=== PATIENT | male | born 1960 | race African-American/Black ===

== ENCOUNTER 2016-11-02 12:25 | Inpatient (IN) | payer MEDICAID ==
[2016-11-02] VITALS (20 sets, daily range): BP systolic 107–132; BP diastolic 52–83
[~2016-11-02] VITALS: Ht 190.5 cm; Wt 121.5 kg
[~2016-11-02 12:25] MED LIST: AMLO5TAB2 PO; CHOL20007 PO; CLON0.1T PO; GABA-498 PO; HYDR-2595; HYDR25TA4 PO; LOS50T
[2016-11-02 13:22] LABS: Basophils # (auto) 0 uL; Basophils % (auto) 0.3 % (0.0-2.0); DEFINITIVE VIEW TRANSMISSION; Eosinophils # (auto) 0 uL; Eosinophils % (auto) 0.3 % (0.0-7.0); Hematocrit 21.4 % (41.0-53.0); Lymphocytes # (auto) 1.3 uL; Lymphocytes % (auto) 13.4 % (10.0-50.0); Mean Corpuscular Hemoglobin 28.6 pg (28.0-32.0); Mean Corpuscular Hgb Conc. 31.6 g/dL (32.0-36.0); Mean Corpuscular Volume 90.6 fL (80.0-100.0); Mean Platelet Volume 7.6 fL (7.4-10.4); Monocytes # (auto) 0.9 uL; Monocytes % (auto) 9.1 % (0.0-12.0); Neutrophils # (auto) 7.7 uL; Neutrophils % (auto) 76.9 % (37.0-80.0); Platelet Count (auto) 269 10^3/uL (140-450); White Blood Cell 10.1 10^3/uL (4.4-10.8)
[2016-11-02 13:27] LABS: Hemoglobin 6.8 g/dL (13.5-17.5)
[2016-11-02 13:45] LABS: Albumin 3.1 g/dL (3.4-5.0); BUN/Creatinine Ratio 19.4; Calcium 7.8 mg/dL (8.5-10.1); Potassium 3.5 mmol/L (3.5-5.1)
[2016-11-02 13:47] LABS: Bilirubin, Total 0.2 mg/dL (0.2-1.0); Total Protein 6.2 g/dL (6.4-8.2)
[2016-11-02] MEDS ORDERED: SODIUM CHLORIDE 0.9% 1,000 ML IVB ONE (15:21)
[2016-11-02] MEDS ORDERED: PANTOPRAZOLE SODIUM 40 MG/10 ML VIAL IV ONE (15:30)
[2016-11-02] MEDS ORDERED: ONDANSETRON HCL 4 MG/2 ML VIAL IV ONE (15:30)
[2016-11-02 15:50] LABS: Magnesium 2.2 mg/dL (1.6-2.6)
[2016-11-02 16:11] LABS: INR 1.05 (0.9-1.15); Prothrombin Time 10.8 sec (9.37-12.3)
[2016-11-02 16:58] LABS: Urine Bilirubin Negative (Negative); Urine Blood Negative /uL (Negative); Urine Color Yellow (Yellow); Urine Glucose Normal (Normal); Urine Hyaline Cast FEW /lpf (0 - 2); Urine Ketone Negative (Negative); Urine Nitrite Negative (Negative); Urine RBC <1 /hpf (0 - 3); Urine Urobilinogen Normal (Negative); Urine pH 5.5 (5.0-8.0)
[2016-11-02] MEDS: SODIUM CHLORIDE 0.9% 1,000 ML IV SCH ×2 (18:07→21:06)
[2016-11-02] MEDS ORDERED: LEVOFLOXACIN 500MG 100 ML IV ONE (18:15)
[2016-11-02] MEDS ORDERED: MORPHINE SULF INJ 2 MG/ML SYRINGE 1ML IV PRN ×4 (18:15→21:30)
[2016-11-02] MEDS ORDERED: LORazepam 2MG/ML-1ML VIAL IV PRN (18:15)
[2016-11-02] MEDS ORDERED: PROMETHAZINE HCL 25 MG/ML 1ML IV PRN (18:15)
[2016-11-02] MEDS ORDERED: NITROGLYCERIN 0.4 MG SL TAB SL PRN (18:15)
[2016-11-02] MEDS ORDERED: ASP81EC PO (21:50)
[2016-11-02] MEDS ORDERED: MORP60TA25 PO (21:50)
[2016-11-02] MEDS ORDERED: PYRI50TA67 PO (21:50)
[2016-11-02] MEDS ORDERED: BECL0.07 INH (21:50)
[2016-11-02] MEDS ORDERED: ISON300T68 PO (21:50)
[2016-11-02] MEDS: MORPHINE SULF 30 mg ER tab PO SCH (22:00)
[2016-11-02] MEDS: metroNIDAZOLE 500MG/100ML 100 ML IV SCH (22:57)
[2016-11-03] VITALS (66 sets, daily range): BP systolic 101–135; BP diastolic 45–85
[2016-11-03 00:42] LABS: Hematocrit 22.5 % (41.0-53.0); Hemoglobin 7.3 g/dL (13.5-17.5)
[2016-11-03] MEDS: metroNIDAZOLE 500MG/100ML 100 ML IV SCH ×3 (06:25→21:55)
[2016-11-03 06:54] LABS: Basophils # (auto) 0 uL; Basophils % (auto) 0.1 % (0.0-2.0); Eosinophils # (auto) 0 uL; Eosinophils % (auto) 0.3 % (0.0-7.0); Hematocrit 27.4 % (41.0-53.0); Hemoglobin 8.7 g/dL (13.5-17.5); Lymphocytes # (auto) 0.8 uL; Lymphocytes % (auto) 9.2 % (10.0-50.0); Mean Corpuscular Hemoglobin 28.6 pg (28.0-32.0); Mean Corpuscular Hgb Conc. 31.8 g/dL (32.0-36.0); Mean Corpuscular Volume 89.8 fL (80.0-100.0); Mean Platelet Volume 7.4 fL (7.4-10.4); Monocytes # (auto) 1.1 uL; Monocytes % (auto) 11.9 % (0.0-12.0); Neutrophils % (auto) 78.5 % (37.0-80.0); Platelet Count (auto) 220 10^3/uL (140-450); Red Cell Distribution Width 14.5 % (11.6-16.0)
[2016-11-03 07:40] LABS: Albumin 2.8 g/dL (3.4-5.0); BUN/Creatinine Ratio 17.4; Bilirubin, Total 0.8 mg/dL (0.2-1.0); Calcium 7.7 mg/dL (8.5-10.1); Potassium 3.9 mmol/L (3.5-5.1); Total Protein 5.6 g/dL (6.4-8.2)
[2016-11-03] MEDS: MORPHINE SULF 30 mg ER tab PO SCH ×2 (09:02→21:55)
[2016-11-03] MEDS ORDERED: PANTOPRAZOLE SODIUM 40 MG/10 ML VIAL IV SCH ×2 (10:00→22:00)
[2016-11-03] MEDS: LEVOFLOXACIN 500MG 100 ML IV SCH (11:00)
[2016-11-03 11:49] LABS: Hematocrit 27.4 % (41.0-53.0); Hemoglobin 8.7 g/dL (13.5-17.5)
[2016-11-03] MEDS: PANTOPRAZOLE SODIUM 80 MG in SODIUM CHL 0.9% 60 ML IV SCH ×2 (15:52→22:40)
[2016-11-03] MEDS: SODIUM CHLORIDE 0.9% 1,000 ML IV SCH ×2 (15:55→23:48)
[2016-11-04] VITALS (24 sets, daily range): BP systolic 108–140; BP diastolic 51–78
[2016-11-04 04:06] LABS: Basophils # (auto) 0 uL; Basophils % (auto) 0.3 % (0.0-2.0); DEFINITIVE VIEW TRANSMISSION; Eosinophils # (auto) 0.1 uL; Eosinophils % (auto) 1.3 % (0.0-7.0); Hematocrit 25.2 % (41.0-53.0); Hemoglobin 8.1 g/dL (13.5-17.5); Lymphocytes # (auto) 1.3 uL; Lymphocytes % (auto) 18.5 % (10.0-50.0); Mean Corpuscular Hemoglobin 28.9 pg (28.0-32.0); Mean Corpuscular Hgb Conc. 32.3 g/dL (32.0-36.0); Mean Corpuscular Volume 89.5 fL (80.0-100.0); Mean Platelet Volume 7.9 fL (7.4-10.4); Monocytes # (auto) 0.8 uL; Monocytes % (auto) 11.2 % (0.0-12.0); Neutrophils # (auto) 4.7 uL; Neutrophils % (auto) 68.7 % (37.0-80.0); Platelet Count (auto) 207 10^3/uL (140-450); Red Cell Distribution Width 14.4 % (11.6-16.0); White Blood Cell 6.8 10^3/uL (4.4-10.8)
[2016-11-04 04:08] LABS: BUN/Creatinine Ratio 8.7; Calcium 7.6 mg/dL (8.5-10.1); Magnesium 1.9 mg/dL (1.6-2.6); Phosphorus 2.9 mg/dL (2.5-4.90); Potassium 3.5 mmol/L (3.5-5.1)
[2016-11-04] MEDS: metroNIDAZOLE 500MG/100ML 100 ML IV SCH ×2 (06:34→13:38)
[2016-11-04] MEDS: SODIUM CHLORIDE 0.9% 1,000 ML IV SCH ×2 (06:38→15:01)
[2016-11-04] MEDS ORDERED: diphenhdrAMINE HCL 50 MG/1 ML VL ONE (08:23)
[2016-11-04] MEDS ORDERED: LIDOCAINE VISCOUS 2% 15ML UD ONE (08:23)
[2016-11-04] MEDS ORDERED: fentaNYL CITRATE 100 MCG/2 ML VL ONE (08:23)
[2016-11-04] MEDS ORDERED: MIDAZOLAM HCL 5 MG/ML-1ML VIAL ONE (08:23)
[2016-11-04] MEDS ORDERED: SODIUM CHLORIDE LOCK 10 ML ONE (08:23)
[2016-11-04] MEDS: LEVOFLOXACIN 500MG 100 ML IV SCH (09:49)
[2016-11-04] MEDS: PANTOPRAZOLE SODIUM 80 MG in SODIUM CHL 0.9% 60 ML IV SCH (09:49)
[2016-11-04] MEDS: MORPHINE SULF 30 mg ER tab PO SCH ×2 (12:41→22:31)
[2016-11-05 06:36] LABS: Basophils # (auto) 0 uL; Basophils % (auto) 0.5 % (0.0-2.0); Eosinophils # (auto) 0.1 uL; Eosinophils % (auto) 0.9 % (0.0-7.0); Hematocrit 27.4 % (41.0-53.0); Hemoglobin 8.7 g/dL (13.5-17.5); Lymphocytes # (auto) 0.8 uL; Lymphocytes % (auto) 13.1 % (10.0-50.0); Mean Corpuscular Hemoglobin 28.6 pg (28.0-32.0); Mean Corpuscular Hgb Conc. 31.8 g/dL (32.0-36.0); Mean Corpuscular Volume 90.1 fL (80.0-100.0); Mean Platelet Volume 7.1 fL (7.4-10.4); Monocytes # (auto) 0.8 uL; Neutrophils # (auto) 4.6 uL; Neutrophils % (auto) 73.5 % (37.0-80.0); Platelet Count (auto) 227 10^3/uL (140-450); Red Cell Distribution Width 14.4 % (11.6-16.0); White Blood Cell 6.3 10^3/uL (4.4-10.8)
[2016-11-05 07:02] LABS: BUN/Creatinine Ratio 11.9; Calcium 7.8 mg/dL (8.5-10.1); Magnesium 2.1 mg/dL (1.6-2.6); Potassium 3.6 mmol/L (3.5-5.1)
[2016-11-05 09:27] VITALS: BP 126/59
[2016-11-05] MEDS: PANTOPRAZOLE 40 MG TAB PO SCH (09:56)
[2016-11-05] MEDS: MORPHINE SULF 30 mg ER tab PO SCH ×2 (09:57→21:26)
[2016-11-05 12:48] VITALS: BP 141/64
[2016-11-05 17:09] VITALS: BP 151/76
[2016-11-05 17:29] VITALS: BP_SYST 142; BP_SYST 151; BP_DIAS 56; BP_DIAS 76
[2016-11-05 21:36] VITALS: BP 128/65
[2016-11-06 05:00] VITALS: BP 128/77
[2016-11-06 09:00] VITALS: BP 136/57
[2016-11-06] MEDS: MORPHINE SULF 30 mg ER tab PO SCH ×2 (10:07→21:30)
[2016-11-06] MEDS: PANTOPRAZOLE 40 MG TAB PO SCH (10:07)
[2016-11-06 13:00] VITALS: BP 137/52
[2016-11-06 17:07] VITALS: BP 131/70
[2016-11-06] MEDS: LACTULOSE 20Gm/30ML SOLN PO SCH ×2 (17:43→21:30)
[2016-11-06 20:58] LABS: Basophils # (auto) 0 uL; Basophils % (auto) 0.5 % (0.0-2.0); Eosinophils # (auto) 0 uL; Eosinophils % (auto) 0.6 % (0.0-7.0); Hematocrit 28.8 % (41.0-53.0); Hemoglobin 9.1 g/dL (13.5-17.5); Lymphocytes % (auto) 13.3 % (10.0-50.0); Mean Corpuscular Hemoglobin 28.2 pg (28.0-32.0); Mean Corpuscular Hgb Conc. 31.6 g/dL (32.0-36.0); Mean Corpuscular Volume 89.2 fL (80.0-100.0); Mean Platelet Volume 7.3 fL (7.4-10.4); Monocytes % (auto) 13.6 % (0.0-12.0); Neutrophils # (auto) 5.2 uL; Platelet Count (auto) 273 10^3/uL (140-450); Red Cell Distribution Width 14.1 % (11.6-16.0); White Blood Cell 7.2 10^3/uL (4.4-10.8)
[2016-11-06 21:53] VITALS: BP 140/70
[2016-11-07 04:58] VITALS: BP 135/96
[2016-11-07] MEDS: LACTULOSE 20Gm/30ML SOLN PO SCH ×2 (05:37→14:00)
[2016-11-07 06:22] LABS: Basophils # (auto) 0 uL; Basophils % (auto) 0.3 % (0.0-2.0); DEFINITIVE VIEW TRANSMISSION; Eosinophils # (auto) 0 uL; Eosinophils % (auto) 0.7 % (0.0-7.0); Hematocrit 27.1 % (41.0-53.0); Hemoglobin 8.4 g/dL (13.5-17.5); Lymphocytes # (auto) 0.9 uL; Lymphocytes % (auto) 13.1 % (10.0-50.0); Mean Corpuscular Hgb Conc. 31.1 g/dL (32.0-36.0); Mean Corpuscular Volume 90.1 fL (80.0-100.0); Mean Platelet Volume 7.4 fL (7.4-10.4); Monocytes # (auto) 0.8 uL; Neutrophils % (auto) 73.9 % (37.0-80.0); Platelet Count (auto) 244 10^3/uL (140-450); Red Cell Distribution Width 14.5 % (11.6-16.0); White Blood Cell 6.8 10^3/uL (4.4-10.8)
[2016-11-07 06:50] LABS: Potassium 3.4 mmol/L (3.5-5.1)
[2016-11-07 07:04] LABS: BUN/Creatinine Ratio 14.3; Calcium 7.7 mg/dL (8.5-10.1)
[2016-11-07 09:00] VITALS: BP 139/74
[2016-11-07] MEDS ORDERED: POTASSIUM CHL 20 Meq TABLET PO ONE (09:15)
[2016-11-07] MEDS: MORPHINE SULF 30 mg ER tab PO SCH ×2 (10:31→11:31)
[2016-11-07] MEDS: PANTOPRAZOLE 40 MG TAB PO SCH (10:31)
[2016-11-07 13:00] VITALS: BP 138/66
[2016-11-07 17:28] VITALS: BP 143/84
== END 2016-11-07 18:44 | disposition home or self-care (01) | DRG 253 ==
LOC: ER 12:25 → TELE 12:26 → ICU WEST 20:35 → TELE-CENTR 11-04 22:12 → CENTRAL 11-07 15:19
PROVIDERS: ADMIT Internal Medicine; ATTEND Internal Medicine
PROC: 30233N1 Transfusion of Nonautologous Red Blood Cells into Peripheral Vein, Percutaneous Approach (ICD-10-PCS; 2016-11-02)
PROC: 30233N1 Transfusion of Nonautologous Red Blood Cells into Peripheral Vein, Percutaneous Approach (ICD-10-PCS; 2016-11-03)
PROC: 0DJ08ZZ Inspection of Upper Intestinal Tract, Via Natural or Artificial Opening Endoscopic (ICD-10-PCS; principal; 2016-11-04 12:00)
DX: K92.2 Gastrointestinal hemorrhage, unspecified (principal); N17.9 Acute kidney failure, unspecified; E66.01 Morbid (severe) obesity due to excess calories; E88.09 Other disorders of plasma-protein metabolism, not elsewhere classified; D62 Acute posthemorrhagic anemia; M54.30 Sciatica, unspecified side; I12.9 Hypertensive chronic kidney disease with stage 1 through stage 4 chronic kidney disease, or unspecified chronic kidney disease; K92.1 Melena; N18.2 Chronic kidney disease, stage 2 (mild); T39.395A Adverse effect of other nonsteroidal anti-inflammatory drugs [NSAID], initial encounter; Z98.84 Bariatric surgery status; Z68.33 Body mass index [BMI] 33.0-33.9, adult; Z98.890 Other specified postprocedural states; Z87.891 Personal history of nicotine dependence; Z80.1 Family history of malignant neoplasm of trachea, bronchus and lung; Z80.42 Family history of malignant neoplasm of prostate; Z82.49 Family history of ischemic heart disease and other diseases of the circulatory system; Z79.899 Other long term (current) drug therapy; Z79.82 Long term (current) use of aspirin; Y92.89 Other specified places as the place of occurrence of the external cause
CPT/HCPCS: 36415; 36430; 43235; 71010; 74176; 80048; 80053; 80061; 81001; 82150; 82270; 82378; 83690; 83735; 84100; 85014; 85018; 85025; 85045; 85610; 85652; 85730; 86141; 86850; 86900; 86901; 86920; 87081; 93005; 96361; 96374; 96375; 99291; C9113; J1956; J2250; J2405; J3490

== ENCOUNTER 2017-01-11 16:11 | Emergency (ER) | payer MEDICAID ==
[~2017-01-11] VITALS: Ht 182.9 cm; Wt 112.0 kg
[~2017-01-11 16:11] MED LIST changes: +ASP81EC PO; +BECL0.07 INH; +MORP60TA25 PO; +PYRI50TA67 PO
[2017-01-11 16:46] VITALS: BP 121/74
== END 2017-01-11 17:31 | disposition home or self-care (01) ==
LOC: ER 16:15
DX: J20.9 Acute bronchitis, unspecified (principal); I10 Essential (primary) hypertension